=== PATIENT | female | born 1990 | race African-American/Black ===

== ENCOUNTER 2017-04-12 19:26 | Emergency (ER) | payer SELFPAY ==
[~2017-04-12] VITALS: Ht 157.5 cm; Wt 82.6 kg
[2017-04-12 19:48] LABS: BILIRUBIN,URINE NEGATIVE (NEGATIVE); KETONES,URINE 2+ (NEGATIVE); LEUKOCYTE ESTERASE ,URINE 2+ (NEGATIVE); NITRITE,URINE POSITIVE (NEGATIVE); PH,URINE 6 (5-9); PROTEIN,URINE 2+ (NEGATIVE); UROBILINOGEN,URINE 1 MG/DL (NORMAL)
--- NOTE | 2017-04-12 19:48 | ED GU-Female ---
General Chief Complaint: -Female Stated Complaint: 10W2D PREG,PAIN WHILE URINATING,FREQUENT URINATION Nursing Triage Note: FREQUENT/PAINFUL URINATION X1 WEEK Nursing Sepsis Screen: No Definite Risk Source: patient Exam Limitations: no limitations History of Present Illness Time seen by provider: 19:47 Initial Comments To ER with painful and frequent urination for one week. She does report nausea but she is also 11 weeks gestation. She denies suprapubic pain. Timing/Duration: week Severity/Quality: moderate Prior Genitourinary Problems: none Associated Symptoms: dysuria Allergies and Home Medications Allergies Coded Allergies: No Known Drug Allergies (Unverified , 04/12/17) Home Medications No Active Prescriptions or Reported Meds Constitutional: see HPI EENTM: see HPI Respiratory: no symptoms reported Cardiovascular: no symptoms reported Genitourinary: see HPI, dysuria Expected Date of Delivery: Nov 06, 2017 Skin: no symptoms reported Psychiatric/Neurological: No Symptoms Reported Past Ldnxwqq-Irsiyc-Towevi Hx Patient Social History Alcohol Use: Denies Use Recreational Drug Use: No Smoking Status: Never a Smoker 2nd Hand Smoke Exposure: No Recent Foreign Travel: No Contact w/Someone Who Travel: No Recent Infectious Disease Expo: No Recent Hopitalizations: No Immunizations Up To Date Tetanus Booster (TDap): Unknown Seasonal Allergies Seasonal Allergies: No Reproductive System : Yes Hx : 4 Hx Para: 3 Physical Exam Vital Signs Vital Sign - Last 12Hours 04/12/17 19:39 Temp 98.1 Pulse 99 Resp 18 B/P (MAP) 127/92 Pulse Ox 100 O2 Delivery Room Air Capillary Refill : Less Than 3 Seconds General Appearance: WD/WN, no apparent distress HEENT: PERRL/EOMI, normal ENT inspection Neck: non-tender, full range of motion Respiratory: normal breath sounds, no respiratory distress, no accessory muscle use Gastrointestinal: normal bowel sounds, non tender, soft Extremities: normal range of motion, non-tender Neurologic/Psychiatric: alert, normal mood/affect, oriented x 3 Skin: normal color, warm/dry Progress/Results/Core Measures Results/Orders Lab Results Laboratory Tests Test 04/12/17 19:35 Range/Units Urine Color YELLOW Urine Clarity SLIGHTLY CLOUDY Urine pH 6 5-9 Urine Specific [place] 1.020 1.016-1.022 Urine Protein 2+ H NEGATIVE Urine Glucose (UA) NEGATIVE NEGATIVE Urine Ketones 2+ H NEGATIVE Urine Nitrite POSITIVE H NEGATIVE Urine Bilirubin NEGATIVE NEGATIVE Urine Urobilinogen 1 NORMAL MG/DL Urine Leukocyte Esterase 2+ H NEGATIVE Urine RBC (Auto) 1+ H NEGATIVE Urine RBC 0-2 /HPF Urine WBC 50-100 H /HPF Urine Squamous Epithelial Cells >50 H /HPF Urine Crystals NONE /LPF Urine Bacteria LARGE H /HPF Urine Casts NONE /LPF Urine Mucus MODERATE H /LPF Urine Culture Indicated YES Urine Test POSITIVE NEGATIVE My Orders Orders - WINTER ALARCON [employer] Ua Culture If Indicated (04/12/17 19:34) Hcg,Qualitative Urine (04/12/17 19:45) Urine Culture (04/12/17 19:35) Cefdinir Capsule (Omnicef Capsule) (04/12/17 20:00) Vital Signs/I&O Vital Sign - Last 12Hours 04/12/17 19:39 Temp 98.1 Pulse 99 Resp 18 B/P (MAP) 127/92 Pulse Ox 100 O2 Delivery Room Air Blood Pressure Mean: 104 Departure Impression Impression: Primary Impression: Urinary tract infection Disposition: 01 HOME, SELF-CARE Condition: Stable Departure-Patient Inst. Decision time for Depature: 20:00 Referrals: JOSE ANTONIO CRUMP DENNIS G MD KOEHN, DANIEL J MD NO,LOCAL PHYSICIAN (PCP) Primary Care Physician SUNG NAJERA DO Patient Instructions: Urinary Tract Infection, Adult (DC), Urinary Tract Infection, Child (DC) Add. Discharge Instructions: 1. Antibiotics as directed 2. Follow-up with one of the physicians listed as soon as they can schedule you. 3. All discharge instructions reviewed with patient and/or family. Voiced understanding. Scripts Cefdinir (Cefdinir) 300 Mg Capsule 300 MG PO BID, #10 CAP Prov: WINTER ALARCON [employer] 04/12/17 WINTER ALARCON APRN Apr 12, 2017 19:48
[2017-04-12 19:57] LABS: SQUAMOUS EPITHELIAL CELL,UR >50 /HPF; WBC,URINE 50-100 /HPF
[2017-04-12] MEDS ORDERED: CEFDINIR 300 MG (OMNICEF) CAP PO ONE (20:00)
[2017-04-12] MEDS ORDERED: CEFD300C3 PO (20:02)
[2017-04-12 20:19] VITALS: BP 127/92
== END 2017-04-12 20:19 | disposition home or self-care (01) ==
LOC: ER 19:30
DX: O23.41 Unspecified infection of urinary tract in pregnancy, first trimester (principal); Z3A.11 11 weeks gestation of pregnancy
CPT/HCPCS: 81000; 84703; 87088; 87186; 99283

== ENCOUNTER 2017-11-03 03:15 | Inpatient (IN) | payer MEDICAID ==
[2017-11-03] VITALS (40 sets, daily range): BP systolic 89–135; BP diastolic 53–90
[~2017-11-03] VITALS: Ht 157.5 cm; Wt 87.7 kg
[~2017-11-03 03:15] MED LIST: CEFD300C3 PO
--- OUTSIDE RECORDS SUMMARY | 2017-11-03 07:00 | XMS REPORT | Continuity of Care Document ---
Author [facility] Address Unknown Phone Unavailable Allergies Active Description Code Type Severity Reaction Onset Reported/Identified Relationship to Patient Clinical Status Yes NO NAME AVAILABLE 04469 DRUG N/ A N/A Medications There is no data. Problems Date Dx Coded Attending Type Code Diagnosis Diagnosed By 04/29/2017 JESE COOPER O21.1 04/29/2017 JESE COOPER O21.1 04/29/2017 JESE COOPER O26.851 04/29/2017 JESE COOPER R82.99 04/29/2017 JESE COOPER B37.9 04/29/2017 JESE COOPER Z3A.08 Procedures There is no data. Results Test Result Range Bacteria identified in Urine by Culture - 09/06/00 00:09 CBC W Auto Differential panel - Blood - 03/20/17 15:45 Hemoglobin [Mass/volume] in Venous blood 12.90 g/dL 12.00 TO 16.00 Leukocytes other [Identifier] in Blood by Automated count 9.90 10*3/ uL 4.80 TO 10.80 Erythrocytes [#/volume] in Blood 5.70 10*6/uL 3.80 TO 5.20 Hematocrit [Volume Fraction] of Venous blood 41.30 % 35.00 TO 47.00 Erythrocyte mean corpuscular volume [Entitic volume] by Automated count 72.40 fL 84.50 TO 99.70 Erythrocyte mean corpuscular hemoglobin [Entitic mass] by Automated count 22.60 pg 26.00 TO 34.00 Erythrocyte mean corpuscular hemoglobin concentration [Mass/volume] by Automated count 31.1 g/dL 31.00 TO 37.00 Erythrocyte distribution width [Ratio] by Automated count 15.60 % 11.5 TO 14.5 Platelet mean volume [Entitic volume] in Blood by Automated count 10.20 fL 6.80 TO 10.00 Platelets [#/volume] in Blood by Automated count 275 x10*3/uL 147 TO 412 Neutrophils/100 leukocytes in Blood by Manual count 70.80 % 40.00 TO 75.00 Lymphocytes/100 leukocytes in Blood by Automated count 25.20 % 22.00 TO 49.00 Monocytes/100 leukocytes in Blood by Automated count 3.70 % 2.00 TO 9.00 Eosinophils/100 leukocytes in Blood by Automated count 0.30 % 1 TO 5 Basophils/100 leukocytes in Blood by Automated count 0.00 % 0 TO 2.5 Neutrophils [#/volume] in Blood by Automated count 7.00 x10*3/uL 1.6 TO 6.6 Lymphocytes [#/volume] in Blood by Automated count 2.50 x10*3/uL 0.6 TO 2.8 Monocytes [#/volume] in Blood by Automated count 0.40 x10*3/uL 0.0 TO 1.5 Eosinophils [#/volume] in Blood by Automated count 0.00 x10*3/uL 0 TO 0.4 Basophils [#/volume] in Blood by Automated count 0.00 x10*3/uL 0 TO 0.10 Comprehensive metabolic 2000 panel - Serum or Plasma - 03/20/17 15:45 Protein [Mass/volume] in Serum or Plasma 8.3 g/dL 6.4 TO 8.2 Albumin [Mass/volume] in Serum or Plasma 4.0 g/dL 3.4 TO 5.0 Globulin [Mass/volume] in Serum by calculation 4.3 g/dl 2.3 TO 3.5 Albumin/Globulin [Mass Ratio] in Serum or Plasma 0.9 g/dL 1.2 TO 2.0 Alkaline phosphatase [Enzymatic activity/volume] in Serum or Plasma 56 U/L 46 TO 116 Aspartate aminotransferase [Enzymatic activity/volume] in Serum or Plasma 19 U/L 15 TO 37 Bilirubin.total [Mass/volume] in Serum or Plasma 0.8 mg/dl 0.2 TO 1.0 Alanine aminotransferase [Enzymatic activity/volume] in Serum or Plasma 16 U/L 12 TO 78 Sodium [Moles/volume] in Serum or Plasma 139 mmol/L 136 TO 145 Potassium [Moles/volume] in Serum or Plasma 3.1 mmol/L 3.5 TO 5.1 Chloride [Moles/volume] in Serum or Plasma 101 mmol/L 98 TO 107 Carbon dioxide [Partial pressure] in Venous blood 24.1 mmol/L 21 TO 32 Anion gap in Serum or Plasma 13.9 mmmol/L 8 TO 16 Urea nitrogen [Mass/volume] in Venous blood 10 mg/dL 7 TO 18 Creatinine [Mass/volume] in Serum or Plasma 0.8 mg/dL 0.51 TO 1.17 Urea nitrogen/Creatinine [Mass Ratio] in Serum or Plasma 12.5 mg/dL 9.0 TO 25.0 Glomerular filtration rate/1.73 sq M.predicted >=mL/min Glucose [Mass/volume] in Serum or Plasma 95 mg/dL 74 TO 106 Calcium [Mass/volume] in Serum or Plasma 9.3 mg/dL 8.5 TO 10.1 Choriogonadotropin.beta subunit free [Units/volume] in Serum or Plasma - 15:45 Choriogonadotropin.beta subunit free [Units/volume] in Serum or Plasma 12578 mIU/mL 0 TO 6 Urinalysis complete panel - Urine - 03/20/17 16:01 Color of Urine A Clarity of Urine B Specific gravity of Urine by Test strip 1.025 1.003 TO 1.030 pH of Urine by Test strip 6.0 5 TO 8 Glucose [Mass/volume] in Urine by Test strip H Bilirubin.total [Presence] in Urine by Test strip H Ketones [Mass/volume] in Urine by Test strip H Hemoglobin [Presence] in Urine by Test strip H Protein [Mass/volume] in Urine by Test strip H Urobilinogen [Mass/volume] in Urine by Test strip >= 0.2 TO 1.0 Nitrite [Presence] in Urine by Test strip F Leukocyte esterase [Presence] in Urine by Test strip H Urinalysis dipstick W Reflex Microscopic panel - Urine YES ----- ----- TO ----- Leukocytes [#/area] in Urine sediment by Microscopy high power field C /HPF 0 TO 5 Erythrocytes [#/volume] in Urine sediment by Microscopy high power field 4 /HPF Bacteria [Presence] in Urine sediment by Light microscopy I /HPF Epithelial cells [#/area] in Urine sediment by Microscopy high power field Q /HPF Mucus [Presence] in Urine sediment by Light microscopy G /HPF Bilirubin [Presence] in Urine by Confirmatory method - 03/20/17 16:15 Bilirubin [Presence] in Urine by Confirmatory method F Encounters ACCT No. Visit Date/Time Discharge Status Pt. Type Provider Facility Loc./Unit Complaint [id number] 03/20/2017 14:20:00 03/20/2017 14:20:00 DIS Emergency JESE COOPER [facility] ER HYPEREMESIS GRAVIDARUM WITH METABOLIC DISTURBANCE [id number] 03/22/2017 16:09:10 03/22/2017 23:59:59 CLS Outpatient JESE COOPER [facility]
--- OUTSIDE RECORDS SUMMARY | 2017-11-03 07:00 | XMS REPORT | Clinical Summary ---
Demographics Preferred Language Unknown Marital Status Unknown [place] Affiliation Unknown Race Unknown Ethnic Group Unknown Author Author [facility] Organization [facility] Address Unknown Phone Unavailable Care Team Providers Care Ophthalmic Technician Name Role Phone PP Unavailable Allergies Not on File Current Medications Not on file Active Problems Not on file Social History Tobacco Use Types Packs/Day Years Used Date Never Assessed Sex Assigned at Date Recorded Not on file Plan of Treatment Health Maintenance Due Date Last Done Comments Varicella Vaccines (1 of 2003 2 - 2 Dose Adolescent Series) DTaP,Tdap,and Td Vaccines 2009 (1 - Tdap) CERVICAL CANCER SCREENING 2011 Influenza Vaccine (#1) 2017 Results Not on filefrom Last 3 Months
[2017-11-03] MEDS ORDERED: D5 LR IV SOLUTION 1,000 ML IV SCH (07:41)
[2017-11-03] MEDS ORDERED: AMPICILLIN INJECTION 2,000 MG in NS (IVPB) 50 ML IV SCH (07:41)
[2017-11-03] MEDS ORDERED: AMPICILLIN 2000 MG INJECTION (IM/IV) ONE (07:42)
[2017-11-03] MEDS ORDERED: NS (IVPB) 50 ML ONE (07:43)
[2017-11-03 08:04] LABS: BASOPHILS % (AUTO) 0 % (0-10); EOSINOPHILS # (AUTO) 0.2 10^3/uL (0.0-0.3); EOSINOPHILS % (AUTO) 2 % (0-10); HEMATOCRIT 30 % (35-52); HEMOGLOBIN 10.3 G/DL (11.5-16.0); LYMPHOCYTES # (AUTO) 2.2 X 10^3 (1.0-4.0); LYMPHOCYTES % (AUTO) 27 % (12-44); MEAN CORPUSCULAR HEMOGLOBIN 24 PG (25-34); MEAN CORPUSCULAR HGB CONC 34 G/DL (32-36); MEAN CORPUSCULAR VOLUME 72 FL (80-99); MEAN PLATELET VOLUME 12.1 FL (7.4-10.4); MONOCYTES # (AUTO) 0.7 X 10^3 (0.0-1.0); MONOCYTES % (AUTO) 8 % (0-12); NEUTROPHILS # (AUTO) 5.1 X 10^3 (1.8-7.8); NEUTROPHILS % (AUTO) 62 % (42-75); PLATELET COUNT 199 10^3/uL (130-400); RED BLOOD COUNT 4.24 10^6/uL (4.35-5.85); WHITE BLOOD COUNT 8.2 10^3/uL (4.3-11.0)
[2017-11-03] MEDS: OXYTOCIN/NORMAL SALINE 500 ML IV SCH ×2 (09:55→14:22)
[2017-11-03] MEDS ORDERED: SUFENTA 0.6MCG/ML BUPIVA 0.125 100 ML ONE ×2 (11:12→12:26)
[2017-11-03] MEDS ORDERED: LACTATED RINGERS 1,000 ML IV ONE ×2 (11:12→13:00)
[2017-11-03] MEDS ORDERED: NS IV SCH ×2 (11:45)
[2017-11-03] MEDS ORDERED: AMPICILLIN IV SCH ×2 (11:45)
[2017-11-03] MEDS ORDERED: fentaNYL INJECTION 100 MCG/2 ML AMP ONE (12:26)
[2017-11-03] MEDS ORDERED: BUPIVACAINE 0.25% 30 ML (SENSORCAINE) VIAL ONE (12:26)
[2017-11-03] MEDS ORDERED: LACTATED RINGERS 1,000 ML IV SCH (13:09)
[2017-11-03] MEDS ORDERED: EPIDURAL (SUFENTA 0.6MCG/ML BUPIVA 0.125%) 100 ML BAG EPI PRN (13:15)
[2017-11-03] MEDS ORDERED: diphenhydrAMINE 50 MG/ML INJ (BENADRYL) IV PRN (13:15)
[2017-11-03] MEDS ORDERED: ONDANSETRON 4 MG/2 ML (SDV) Z0FRAN IV PRN (13:15)
[2017-11-03] MEDS ORDERED: NALOXONE 0.4 MG/ML 1 ML (NARCAN) VIAL IV PRN ×2 (13:15)
[2017-11-03] MEDS ORDERED: METOCLOPRAMIDE INJ 10 MG/2 ML (REGLAN) IV PRN (13:15)
[2017-11-03] MEDS ORDERED: LIDOCAINE/EPI 2% 1:200,00 (XYLOCAINE) 10 ML VIAL ONE (13:59)
[2017-11-03] MEDS ORDERED: CATHETER FLUSH 10 ML SYR IV SCH ×2 (14:00→22:00)
[2017-11-03] MEDS ORDERED: OXYTOCIN/NORMAL SALINE 500 ML IV SCH (14:29)
[2017-11-03] MEDS ORDERED: TETANUS,DIPTH,PERTUSS P/F (BOOSTRIX) 0.5 ML VIAL IM ONE (14:30)
[2017-11-03] MEDS ORDERED: MEASLES,MUMPS,RUBELLA 1 EA INJ SQ ONE (14:30)
[2017-11-03] MEDS ORDERED: WITCH HAZEL(TUCKS) 40 EA JAR TOP PRN (14:30)
[2017-11-03] MEDS ORDERED: BENZOCAINE/MENTHOL (DERMOPLAST) 56 ML CAN TP PRN (14:30)
--- NOTE | 2017-11-03 14:38 | History & Physical-OB ---
OB - Chief Complaint & HPI Date/Time Date of Admission: Date of Admission: Nov 03, 2017 at 06:45 Time Seen by Provider: 13:05 Chief Complaint/History OB-Reason for Admission/Chief: Induction of Labor (Elective) Hx : 4 Hx Para: 3 Expected Date of Delivery: Nov 05, 2017 Gestational Age in Weeks: 39 Gestational Age in Days: 5 Allergies and Home Medications Allergies Coded Allergies: No Known Drug Allergies (Unverified , 04/12/17) Home Medications Cefdinir 300 Mg Capsule, 300 MG PO BID Prescribed by: WINTER ALARCON on 04/12/172001 OB - History Hx of Present Care: Yes Ultrasounds: Normal mid trimester US Obstetrical Complications: None Medical Complications: None Other Concerns: Incarceration during Information Induced Hypertension: No Maternal Gestational Diabetes: No Hemorrhage: No Obstetrical History Hx : 4 Hx Para: 3 Hx # Term Pregnancies: 3 Hx Complication: No Hx Induced Hypertens: No Hx Maternal Gestational Diabet: No Hx Hemorrhage: No Patient Past Medical History HSV Social History/Family History HIV/AIDS: No Recent Infectious Disease Expo: No Sexually Transmitted Disease: Yes (HSV on PPX) 2nd Hand Smoke Exposure: No Immunizations Tetanus Booster (TDap): Less than 5yrs Rubella: immune RPR/VDRL: Negative GBS Status: Positive HBsAG: Negative OB - Admission Exam Physical Exam Vitals: Vital Signs 11/03/17 11/03/17 07:32 09:55 Temp 98.2 Pulse 96 Resp 20 B/P (MAP) 117/82 (94) O2 Delivery Room Air HEENT: NCAT Heart: Rhythm Normal Lungs: Clear Abdomen: Gravid Extremities: Normal Cervical Dilatation: 6cm Effacement: 100% Station: 0 Membranes: Ruptured (AROM at [address] Quintana) Amniotic Fluid: Clear Labs Laboratory Tests Test 11/03/17 07:53 Range/Units White Blood Count 8.2 4.3-11.0 10^3/uL Red Blood Count 4.24 L 4.35-5.85 10^6/uL Hemoglobin 10.3 L 11.5-16.0 G/DL Hematocrit 30 L 35-52 % Mean Corpuscular Volume 72 L 80-99 FL Mean Corpuscular Hemoglobin 24 L 25-34 PG Mean Corpuscular Hemoglobin Concent 34 32-36 G/DL Red Cell Distribution Width 15.0 H 10.0-14.5 % Platelet Count 199 130-400 10^3/uL Mean Platelet Volume 12.1 H 7.4-10.4 FL Neutrophils (%) (Auto) 62 42-75 % Lymphocytes (%) (Auto) 27 12-44 % Monocytes (%) (Auto) 8 0-12 % Eosinophils (%) (Auto) 2 0-10 % Basophils (%) (Auto) 0 0-10 % Neutrophils # (Auto) 5.1 1.8-7.8 X 10^3 Lymphocytes # (Auto) 2.2 1.0-4.0 X 10^3 Monocytes # (Auto) 0.7 0.0-1.0 X 10^3 Eosinophils # (Auto) 0.2 0.0-0.3 10^3/uL Basophils # (Auto) 0.0 0.0-0.1 10^3/uL OB - Assessment/Plan/Diagnosis Assessment Assessment: active labor, group B positive strep, induction of labor Plan Plan: Expectant Management, Induction Other Plan 27 yo @ 39.5 wga here for elective IOL Plan - GBS +, Ampicillin - h/o HSV, no active lesions, on Acyclovir PPX - Pitocin for IOL Copy Copies To 1: FARTUN QUINTANA MD, HOLLY R MD Nov 03, 2017 14:38
--- NOTE | 2017-11-03 14:41 | OB Labor & Delivery Record ---
Vag Delivery Note Vag Delivery Note Date of Delivery: 11/03/17 Preoperative Diagnosis: Louann Frazier is a (27 /Para 4/3 ,Gestational Age (39.5 wks) admitted for IOL, H/o HSV (none active), GBS positive Postoperative Diagnosis: Same Surgeon: FARTUN FRY MD Diplomatic Interpreter/Translator: [None] Anesthesia: [Epidural] Delivery Type: @ 1415 Findings: Term Female infant Viable [female] infant, apgars [8/9], weight [6#2, 2778 grams] Lacerations: Left periurethral laceration Intact placenta with 3 vessel cord. No nuchal cord, body cord or shoulder dystocia Estimated Blood Loss: [100] ml Complications: None Condition: Stable Description of Procedure: The patient is a 27 yo G4 now P4 @ 39.5 wga who presented for elective IOL. She was admitted and informed consent was obtained. Her labor course was unremarkable. She progressed to complete dilatation and began to push. She was then set up for delivery. The 's head was delivered atraumatically in the NENA position. The shoulders and remainder of the 's body were then delivered without difficulty. Upon delivery, the head was held below the level of the perineum and the mouth and nares were bulb suctioned. The cord was doubly clamped and cut by FOB after delayed cord clamping at 2 mins and the was handed off to the pediatric staff on mother's abdomen for skin to skin. An intact placenta with 3-vessel cord delivered via Vj and there was found to be minimal bleeding.~ Vigorous fundal massage was performed and the fundus was found to be firm. IV oxytocin was given. Examination of the vagina and perineum revealed a left periurethral abrasion that did not require repair. Following the repair, sponge, instrument and needle counts were correct. Mom and baby were both in stable condition in the labor suite. Vitals - Labs Vital Signs - I&O Vital Signs Date Time Temp Pulse Resp B/P (MAP) Pulse Ox O2 Delivery O2 Flow Rate FiO2 11/03/17 09:55 96 117/82 (94) 11/03/17 07:32 98.2 109 20 118/74 (89) Room Air Labs Laboratory Tests 11/03/17 07:53: White Blood Count 8.2, Red Blood Count 4.24L, Hemoglobin 10.3L, Hematocrit 30L, Mean Corpuscular Volume 72L, Mean Corpuscular Hemoglobin 24L, Mean Corpuscular Hemoglobin Concent 34, Red Cell Distribution Width 15.0H, Platelet Count 199, Mean Platelet Volume 12.1H, Neutrophils (%) (Auto) 62, Lymphocytes (%) (Auto) 27 , Monocytes (%) (Auto) 8, Eosinophils (%) (Auto) 2, Basophils (%) (Auto) 0, Neutrophils # (Auto) 5.1, Lymphocytes # (Auto) 2.2, Monocytes # (Auto) 0.7, Eosinophils # (Auto) 0.2, Basophils # (Auto) 0.0 FARTUN FRY MD Nov 03, 2017 2:41 pm
[2017-11-03] MEDS: IBUPROFEN 600 MG (MOTRIN) TAB PO SCH ×2 (17:45→23:48)
[2017-11-04 05:40] LABS: BASOPHILS % (AUTO) 0 % (0-10); EOSINOPHILS # (AUTO) 0.2 10^3/uL (0.0-0.3); EOSINOPHILS % (AUTO) 3 % (0-10); HEMATOCRIT 30 % (35-52); HEMOGLOBIN 10.2 G/DL (11.5-16.0); LYMPHOCYTES # (AUTO) 2.4 X 10^3 (1.0-4.0); LYMPHOCYTES % (AUTO) 28 % (12-44); MEAN CORPUSCULAR HEMOGLOBIN 25 PG (25-34); MEAN CORPUSCULAR HGB CONC 34 G/DL (32-36); MEAN CORPUSCULAR VOLUME 72 FL (80-99); MEAN PLATELET VOLUME 12.7 FL (7.4-10.4); MONOCYTES # (AUTO) 0.7 X 10^3 (0.0-1.0); MONOCYTES % (AUTO) 8 % (0-12); NEUTROPHILS # (AUTO) 5.4 X 10^3 (1.8-7.8); NEUTROPHILS % (AUTO) 61 % (42-75); PLATELET COUNT 202 10^3/uL (130-400); RED BLOOD COUNT 4.17 10^6/uL (4.35-5.85); RED CELL DISTRIBUTION WIDTH 15.1 % (10.0-14.5); WHITE BLOOD COUNT 8.7 10^3/uL (4.3-11.0)
[2017-11-04] MEDS: IBUPROFEN 600 MG (MOTRIN) TAB PO SCH ×2 (05:40→13:00)
[2017-11-04 05:45] VITALS: BP 111/76
--- NOTE | 2017-11-04 07:03 | Anesthesia-Regional Post-Op ---
Regional Patient Condition Mental Status: Alert, Oriented x3 Circulation: Same as Pre-Op Headache: Absent Sensation: Full Recovery Motor Block: Absent Post Op Complications Complications None Follow Up Care/Instructions Patient Instructions None needed. Anesthesia/Patient Condition Patient is doing well, no complaints, stable vital signs, no apparent adverse anesthesia problems. No complications reported per nursing. RAND BANDA CRNA Nov 04, 2017 07:03
[2017-11-04] MEDS ORDERED: ACYC400T (07:54)
[2017-11-04] MEDS ORDERED: PREN1TAB86 PO (07:56)
[2017-11-04] MEDS ORDERED: IBUP-1773 PO (07:56)
[2017-11-04 08:15] VITALS: BP 122/83
--- NOTE | 2017-11-04 09:51 | Discharge Instructions ---
Discharge Inst-Women's Serv Depart Medications New, Converted or Re-Newed RX: Transmitted to Pharmacy New Medications: Vit W-Ca,Fe,FA(<1 mg) ( Vitamins) 1 Each Tablet 1 EACH PO DAILY, #30 TAB 11 Refills Ibuprofen (Ibuprofen) 600 Mg Tablet 600 MG PO Q6H PRN for PAIN-MILD TO MODERATE, #60 TAB 0 Refills Discontinued Medications: Acyclovir (Acyclovir) 400 Mg Tablet Follow Up/Instructions Goal/Follow Up: Follow up with Dr. Quintana in 6 weeks for visit. Activity Activity: Activity as Tolerated (avoid strenuous activity x 6 weeks) Driving Instructions: You May Drive Nothing Inside Vagina: No Douching, No [place], No Tampons Diet Discharge Diet: Regular Diet Symptoms to Report to : Swelling Increased, Bleeding Excessive, Fever Over 101 Degrees F, Pain/Pressure in Chest, Vaginal Bleeding Increase, Cramps in Feet or Legs, Vaginal Discharge Foul, Dizziness/Fainting, Shortness of Breath For Any Problems or Questions: Contact Your Physician Copies To 1: FARTUN QUINTANA MD, BETHANY N MD Nov 04, 2017 7:58 am
--- NOTE | 2017-11-04 10:57 | Discharge Summary ---
Diagnosis/Chief Complaint Date of Admission Nov 03, 2017 at 6:45 am Date of Discharge Nov 04, 2017 Admission Diagnosis Admission Diagnosis 39 weeks gestation Term intrauterine Elective induction of labor H/O genital herpes GBS positive Discharge Diagnosis s/p spontaneous vaginal delivery- with hemostatic periurethral laceration, uncomplicated course with mild asymptomatic anemia. H/O genital herpes- on acyclovir prophylaxis before delivery, discontinued on discharge GBS positive- adequately treated during labor Chief Complaint/HPI Chief Complaint/HPI 27 yo admitted for elective IOL at term. Discharge Summary-Simple/Stand Discharge Physical Examination Allergies: Coded Allergies: No Known Drug Allergies (Unverified , 04/12/17) Vitals & I&Os Vital Sign - Last 12Hours Date Time Temp Pulse Resp B/P (MAP) Pulse Ox O2 Delivery O2 Flow Rate FiO2 11/04/17 08:15 97.0 91 18 122/83 (96) 98 Room Air Intake and Output 11/04/17 00:00 Intake Total 1624 ml Balance 1624 ml General Appearance: Alert, No Acute Distress Respiratory: Clear to Auscultation, Normal Air Movement Cardiovascular: Regular Rate, No Murmurs Abdominal: Other (fundus firm, non-tender, below umbilicus) Extremities: Other (non-pitting edema bilateral feet/ankles) Neuro: Normal Speech Psych/Mental Status: Mental Status NL Hospital Course See final discharge diagnosis. Labs Laboratory Tests Test 11/03/17 07:53 11/04/17 05:30 Range/Units White Blood Count 8.2 8.7 4.3-11.0 10^3/uL Red Blood Count 4.24 L 4.17 L 4.35-5.85 10^6/uL Hemoglobin 10.3 L 10.2 L 11.5-16.0 G/DL Hematocrit 30 L 30 L 35-52 % Mean Corpuscular Volume 72 L 72 L 80-99 FL Mean Corpuscular Hemoglobin 24 L 25 25-34 PG Mean Corpuscular Hemoglobin Concent 34 34 32-36 G/DL Red Cell Distribution Width 15.0 H 15.1 H 10.0-14.5 % Platelet Count 199 202 130-400 10^3/uL Mean Platelet Volume 12.1 H 12.7 H 7.4-10.4 FL Neutrophils (%) (Auto) 62 61 42-75 % Lymphocytes (%) (Auto) 27 28 12-44 % Monocytes (%) (Auto) 8 8 0-12 % Eosinophils (%) (Auto) 2 3 0-10 % Basophils (%) (Auto) 0 0 0-10 % Neutrophils # (Auto) 5.1 5.4 1.8-7.8 X 10^3 Lymphocytes # (Auto) 2.2 2.4 1.0-4.0 X 10^3 Monocytes # (Auto) 0.7 0.7 0.0-1.0 X 10^3 Eosinophils # (Auto) 0.2 0.2 0.0-0.3 10^3/uL Basophils # (Auto) 0.0 0.0 0.0-0.1 10^3/uL Discharge Instructions to patient/family Please see electronic discharge instructions given to patient. Discharge Medications Reviewed and agree with Discharge Medication list on patient's Discharge Instruction sheet Clinical Quality Measures DVT/VTE Risk/Contraindication: Risk Factor Score Per Nursin RFS Level Per Nursing on Admit: 1=Low/No VTE PPX Copy Copies To 1: FARTUN FRY MD, BETHANY N MD Nov 04, 2017 10:57 am
== END 2017-11-04 17:40 | disposition home or self-care (01) | DRG 775 ==
LOC: LDRP 06:45
PROVIDERS: ADMIT Family Medicine; ATTEND Family Medicine
PROC: 10E0XZZ Delivery of Products of Conception, External Approach (ICD-10-PCS; principal; 2017-11-03)
PROC: 3E033VJ Introduction of Other Hormone into Peripheral Vein, Percutaneous Approach (ICD-10-PCS; 2017-11-03)
DX: O99.824 Streptococcus B carrier state complicating childbirth (principal); O90.81 Anemia of the puerperium; Z3A.39 39 weeks gestation of pregnancy; Z37.0 Single live birth
CPT/HCPCS: 36415; 85025; 86850; 86900; 86901